=== PATIENT | male | born 1960 | race Caucasian/White ===

== ENCOUNTER 2025-09-30 17:00 | Inpatient (IN) ==
--- NOTE | 2025-09-30 19:50 | DR.EXTPAIN ---
HPI Time seen Time Seen by Provider: 09/30/25 19:37 HPI Comment HPI Comment: According to pt he has hx of umbilical hernia .Over the past 2 days has noticed increased abdominal pain with nausea and vomiting and fever .Pt came to ER for evaluation Complaint/Symptoms Chief Complaint Doctor Comments: abdominal pain and fever Chief Complaint:: Patient states that he has had a hernia near the center of his abdomen for the past 2 years. He states that the past couple of days, he has had severe pain in that area, it is reddened, he has thrown up, and feels like he ran fever last night. COVID-19 Coronavirus risk:travel/contact w/high risk person: No Has patient experienced Coronavirus symptoms: No Coronavirus symptoms experienced: Fever Nurses notes reviewed Nurses Notes Review: Yes Source History Provided: Patient Mode of arrival Mode of Arrival: Ambulatory Timing Onset of Chief Complaint: 09/28/25 Context History of: None Associated signs and symptoms Associated Signs and Symptoms: Pain PMH PMH Past Medical History: Yes Past Medical History: Hypertension and Kidney Stones Past Surgical History: Yes Surgical History: Joint Replacement Past Surgical History Comment: Both knees, right ankle Family History History of Family Medical Conditions: Yes Family Medical History: Cancer, [place], Coronary Artery Disease, Heart Failure and Hypertension Social History Does patient currently use any type of tobacco product: No Have you used tobacco products in the last 12 months: No Type of Tobacco Use: None Does any household member use tobacco: No Alcohol Use: Occasionally Do you use any recreational Drugs:: No Lives With: Family Lives Where: Home Travel Risk Coronavirus risk:travel/contact w/high risk person: No Has patient experienced Coronavirus symptoms: No Infectious screening In the last 2 months have you had wt loss of >10#?: NO Have you had fever, night sweats or hemotysis?: No Have you traveled outside the country in the last 6 months?: No Isolation: Standard ROS Review of Systems Constitutional: Fever and Malaise Eyes: No Symptoms Reported ENTM: No Symptoms Reported Respiratoy: No Symptoms Reported Cardiovascular: No Symptoms Reported Gastrointestinal/Abdominal: Abdominal Pain, Nausea and Vomiting Genitourinary: No Symptoms Reported Neurological: No Symptoms Reported Musculoskeletal: No Symptoms Reported Integumentary: No Symptoms Reported Hematologic/Lymphatic: No Symptoms Reported Endocrine: No Symptoms Reported Psychiatric: No Symptoms Reported PE Vital Signs Vitals: Vital Signs Temperature 98.2 F Pulse Rate 109 Respiratory Rate 18 Respiratory Rate 18 Blood Pressure 123/78 O2 Sat by Pulse Oximetry 96 General Limitations: No Limitations General Appearance: Alert, Anxious and In Distress Head Head Exam: Normal Inspection, Atraumatic and Normocephalic Eyes Eye exam: Normal Appearance, PERRL and EOMI ENT ENT Exam: Mucous Membranes Moist Neck Neck Exam: Normal Inspection Chest Chest Inspection: Normal Inspection and Symmetric Chest Wall Rise Respiratory Respiratory Exam: Normal Lung Sounds Bilat Respiratory Exam: Bilateral: Clear to Auscultation Cardiovascular Cardiovascular Exam: +S1 and +S2 Abdominal Exam Abdominal Exam: Soft, Tenderness and Hypoactive Bowel Sounds Abdominal Tenderness: Diffuse and Other (umbilical hernia ,erythematous and tender) Extremities Extremities Exam: Normal Inspection Neurological Neurological Exam: Alert Skin Skin Exam: Normal Color MDM Differential Diagnosis Differential Diagnosis: Other (umbilical hernia ,abdominal pain ,fever ) COURSE Treatment Treatment: cbc,cmp ,ct abdomen /pelvis with contrast ,IV toradol IV zofran ROR Labs Reviewed Laboratory Results Reviewed?: Yes 09/30/25 19:50 09/30/25 19:50 Laboratory: WBC 12.0 X10^3/uL (3.6-10.0) H 09/30/25 19:50 RBC 5.72 X10^6/uL (4.7-6.0) 09/30/25 19:50 Hgb 17.2 g/dL (13.5-18.0) 09/30/25 19:50 Hct 50.5 % (42.0-54.0) 09/30/25 19:50 MCV 88.4 fL (80.0-100.0) 09/30/25 19:50 MCH 30.0 pg (27.0-34.0) 09/30/25 19:50 MCHC 34.0 g/dL (33.0-35.0) 09/30/25 19:50 RDW 13.3 % (11.6-16.5) 09/30/25 19:50 Plt Count 253 X10^3/uL (150.0-450.0) 09/30/25 19:50 MPV 8.2 fL (7.4-11.0) 09/30/25 19:50 Neut % (Auto) 78.1 % (42.0-75.0) H 09/30/25 19:50 Lymph % (Auto) 12.7 % (21.0-51.0) L 09/30/25 19:50 [place] % (Auto) 8.4 % (0.0-13.0) 09/30/25 19:50 Eos % (Auto) 0.1 % (0.9-2.9) L 09/30/25 19:50 Baso % (Auto) 0.7 % (0.2-1.0) 09/30/25 19:50 Neut # (Auto) 9.4 x10^3/uL (2.2-4.8) H 09/30/25 19:50 Lymph # (Auto) 1.5 X10^3/uL (1.3-2.9) 09/30/25 19:50 [place] # (Auto) 1.0 x10^3/uL (0.3-0.8) H 09/30/25 19:50 Eos # (Auto) 0.0 x10^3/uL (0.0-0.2) 09/30/25 19:50 Baso # (Auto) 0.1 X10^3/uL (0.0-0.1) 09/30/25 19:50 Absolute Nucleated RBC 0.4 /100WBC 09/30/25 19:50 Sodium 139 mmol/L (136-145) 09/30/25 19:50 Corrected Sodium TNP 09/30/25 19:50 Potassium 4.8 mmol/L (3.5-5.1) 09/30/25 19:50 Chloride 100 mmol/L (98-107) 09/30/25 19:50 Carbon Dioxide 28.7 mmol/L (21-32) 09/30/25 19:50 BUN 18 mg/dL (7-18) 09/30/25 19:50 Creatinine 1.27 mg/dL (0.70-1.30) 09/30/25 19:50 Est GFR (MDRD) Af Amer > 60 (>60) 09/30/25 19:50 Est GFR (MDRD) Non-Af > 60 (>60) 09/30/25 19:50 Glucose 97 mg/dL (65-99) 09/30/25 19:50 Calcium 9.5 mg/dL (8.5-10.1) 09/30/25 19:50 Corrected Calcium TNP 09/30/25 19:50 Total Bilirubin 1.40 mg/dL (0.2-1.0) H 09/30/25 19:50 Direct Bilirubin 0.30 mg/dL (0-0.2) H 09/30/25 19:50 AST 30 Units/L (15-37) 09/30/25 19:50 ALT 39 Units/L (12-78) 09/30/25 19:50 Alkaline Phosphatase 95 Units/L (46-116) 09/30/25 19:50 Total Protein 8.2 g/dL (6.4-8.2) 09/30/25 19:50 Albumin 4.0 g/dL (3.4-5.0) 09/30/25 19:50 Globulin 4.2 g/dL (2.5-4.5) 09/30/25 19:50 Albumin/Globulin Ratio 1.0 Ratio (1.1-2.1) L 09/30/25 19:50 Amylase 81 Units/L (25-115) 09/30/25 19:50 Lipase 54 Units/L (16-77) 09/30/25 19:50 CT ABDOMEN /pelvis incarcerated umbilical hernia Opioid Opioid Risk Tool Age (Erasto box if 16-45): No History of Preadolescent Sexual Abuse: No Total: 0 Total Score Risk Category: Low Risk Copyright: Obed SARAVIA predicting aberrant behaviors Discharge Plan Diagnosis Discharge Problem: Incarcerated umbilical hernia Discharge Plan Patient Disposition: ADMITTED INPATIENT Condition: Stable Orders to Discharge Patient Discharge Orders: Transfer (Routine); Ordered 09/30/25 Ordered By: Avery Noe
[2025-09-30] MEDS: TORADOL 15 MG VIAL IVP ONE (19:59)
[2025-09-30] MEDS: ZOFRAN INJ 4 MG VIAL IVP ONE (20:00)
[2025-09-30 20:22] LABS: MEAN PLATELET VOLUME 8.2 fL (7.4-11.0); RED CELL DISTRIBUTION WIDTH 13.3 % (11.6-16.5)
[2025-09-30 20:27] LABS: CREATININE 1.27 mg/dL (0.70-1.30); eGFR NON BLACK RACES > 60 (>60)
[2025-09-30] MEDS: OMNIPAQUE 350 mg/mL 100 mL BTL IVP NR (20:55)
--- NOTE | 2025-09-30 21:58 | CT ---
EXAM: CT ABDOMEN AND PELVIS WITH CONTRAST HISTORY: IV contrast only .abdominal pain,umbilical hernia; COMPARISON: None. TECHNIQUE: Axial CT images were obtained through the abdomen and pelvis after the intravenous administration of contrast. Coronal and sagittal reformatted images were included. All CT scans at this facility use dose modulation, iterative reconstruction, and/or weight based dosing when appropriate to reduce radiation dose to as low as reasonably achievable. FINDINGS: LOWER THORAX: Unremarkable. LIVER: Diffuse fatty infiltration. Liver measures 12.6 cm longitudinal. GALLBLADDER: Unremarkable. SPLEEN: Unremarkable. PANCREAS: Unremarkable. KIDNEYS/URETERS/BLADDER: Bilateral nephrolithiasis. No hydroureteronephrosis. The ureters and urinary bladder unremarkable. ADRENAL GLANDS: Unremarkable. ABDOMINAL AORTA: Abdominal aorta has normal caliber. LYMPH NODES: No evidence of enlarged nodes. GI TRACT: Umbilical hernia contains a short-segment of small bowel with obstruction of the bowel proximal to this hernia and decompression of the small bowel distal to this hernia. The distended small bowel measures up to 3.7 cm in diameter. There is thickening of the ritchie of the herniated segment of bowel indicating inflammation. No evidence for pneumatosis intestinalis. The umbilical hernia defect measures 22 mm transverse and 19 mm SI.Appendix is unremarkable. ASCITES: None. PNEUMOPERITONEUM: None. GENITALS: Prostate is mildly enlarged. ANTERIOR ABDOMINAL WALL: Umbilical hernia as discussed above under "GI tract". INGUINAL HERNIA:None. BONES: Degenerative changes of the spine. IMPRESSION: Small-bowel obstruction secondary to umbilical hernia containing a short-segment of bowel. See above for details. Recommend surgical consultation. Bilateral nephrolithiasis. Fatty infiltration of the liver. THIS IS AN ELECTRONICALLY VERIFIED FINAL REPORT 09/30/2025 9:50 PM - Electronically signed by Ron Glez DO
[2025-09-30] MEDS ORDERED: NS 1,000 ML IV 1,000 ML ONE (22:07)
[2025-09-30] MEDS: NS 1,000 ML IV 1,000 ML IV ONE (22:13)
[2025-09-30] MEDS ORDERED: KETAMINE HCL ONE (22:37)
[2025-09-30] MEDS ORDERED: NEO-SYNEPHRINE INJ ONE (22:37)
[2025-09-30] MEDS ORDERED: ULTANE GAS IN ONE (22:37)
[2025-10-01] MEDS: MORPHINE SULFATE INJ 2 MG INJ IVP PRN (00:37)
[2025-10-01] MEDS: HIBICLENS WASH EXT ONE (00:44)
[2025-10-01 04:01] VITALS: BMI 32.5
[2025-10-01] MEDS: COZAAR PO SCH (09:20)
[2025-10-01] MEDS: COLACE CAP 100 MG PO SCH (09:20)
--- NOTE | 2025-10-01 09:24 | DR.H&P ---
H&P History & Physical for Day of: H&P Date: 10/01/25 Chief Complaint Chief Complaint: Abdominal pain, nausea and vomiting, tenderness at the umbilicus History of Present Illness History of Present Illness: This is a 65-year-old male with history of hypertension, kidney stones and bilateral knee replacements who has had 2-day history of abdominal pain nausea vomiting which is worse for the last several hours as he was driving his truck car to [place]. He works as a truck driver teamster. He was evaluated in the emergency room and had a CT scan showing incarcerated umbilical hernia with bowel obstruction proximal to the obstruction with decompressed bowel distally Past Medical History Past Medical History: COPD, GERD, Hypertension, Hypothyroidism and Kidney Stones Past Surgical History Surgical History: Joint Replacement and Ortho Surgery (Bilateral knee replacements) Family History Family Medical History: Cancer, [place], Coronary Artery Disease and Heart Failure Social History Does patient currently use any type of tobacco product: No Have you used tobacco products in the last 12 months: No Type of Tobacco Use: None Alcohol Use: Occasionally Drug Use: None Medications Home Medications: Home Medications Medication Instructions Recorded Confirmed Type aspirin 81 mg tablet 81 mg PO QDAY 09/30/2509/30 History cetirizine 10 mg tablet 10 mg PO QDAY 09/30/2509/30 History fluticasone fur. 100 mcg-umeclid 1 ea inhalation QDAY 09/30/25 09/30/25 History 62.5 mcg-vilant 25 mcg inhalat.powder (Trelegy Ellipta) fluticasone propionate 50 1 spray intranasal QDAY 07/1709/30/25 History mcg/actuation nasal spray,suspension gemfibrozil 600 mg tablet 600 mg PO BID 09/30/2509/30 History levothyroxine 175 mcg tablet 175 mcg PO QDAY 09/30/25 09/30/25 History losartan 100 mg tablet 100 mg PO QDAY 09/30/2507/17 History montelukast 10 mg tablet 10 mg PO QDAY 09/30/2509/30 History omeprazole 40 mg capsule,delayed 40 mg PO QDAY 5 09/30/25 History release tamsulosin 0.4 mg capsule 0.4 mg PO QPM 09/30/2509/30 History testosterone cypionate 200 mg/mL 100 mg IM QWEEK 09/3009/30/25 History intramuscular oil Allergies Allergies Allergy/AdvReac Type Severity Reaction Status Date / Time No Known Drug Allergies Allergy Verified 12/23/18 13:52 Labs 09/30/25 19:50 09/30/25 19:50 Labs: Laboratory WBC 12.0 X10^3/uL (3.6-10.0) H 09/30/25 19:50 RBC 5.72 X10^6/uL (4.7-6.0) 09/30/25 19:50 Hgb 17.2 g/dL (13.5-18.0) 09/30/25 19:50 Hct 50.5 % (42.0-54.0) 09/30/25 19:50 MCV 88.4 fL (80.0-100.0) 09/30/25 19:50 MCH 30.0 pg (27.0-34.0) 09/30/25 19:50 MCHC 34.0 g/dL (33.0-35.0) 09/30/25 19:50 RDW 13.3 % (11.6-16.5) 09/30/25 19:50 Plt Count 253 X10^3/uL (150.0-450.0) 09/30/25 19:50 MPV 8.2 fL (7.4-11.0) 09/30/25 19:50 Neut % (Auto) 78.1 % (42.0-75.0) H 09/30/25 19:50 Lymph % (Auto) 12.7 % (21.0-51.0) L 09/30/25 19:50 [place] % (Auto) 8.4 % (0.0-13.0) 09/30/25 19:50 Eos % (Auto) 0.1 % (0.9-2.9) L 09/30/25 19:50 Baso % (Auto) 0.7 % (0.2-1.0) 09/30/25 19:50 Neut # (Auto) 9.4 x10^3/uL (2.2-4.8) H 09/30/25 19:50 Lymph # (Auto) 1.5 X10^3/uL (1.3-2.9) 09/30/25 19:50 [place] # (Auto) 1.0 x10^3/uL (0.3-0.8) H 09/30/25 19:50 Eos # (Auto) 0.0 x10^3/uL (0.0-0.2) 09/30/25 19:50 Baso # (Auto) 0.1 X10^3/uL (0.0-0.1) 09/30/25 19:50 Absolute Nucleated RBC 0.4 /100WBC 09/30/25 19:50 Sodium 139 mmol/L (136-145) 09/30/25 19:50 Corrected Sodium TNP 09/30/25 19:50 Potassium 4.8 mmol/L (3.5-5.1) 09/30/25 19:50 Chloride 100 mmol/L (98-107) 09/30/25 19:50 Carbon Dioxide 28.7 mmol/L (21-32) 09/30/25 19:50 BUN 18 mg/dL (7-18) 09/30/25 19:50 Creatinine 1.27 mg/dL (0.70-1.30) 09/30/25 19:50 Est GFR (MDRD) Af Amer > 60 (>60) 09/30/25 19:50 Est GFR (MDRD) Non-Af > 60 (>60) 09/30/25 19:50 Glucose 97 mg/dL (65-99) 09/30/25 19:50 Calcium 9.5 mg/dL (8.5-10.1) 09/30/25 19:50 Corrected Calcium TNP 09/30/25 19:50 Total Bilirubin 1.40 mg/dL (0.2-1.0) H 09/30/25 19:50 Direct Bilirubin 0.30 mg/dL (0-0.2) H 09/30/25 19:50 AST 30 Units/L (15-37) 09/30/25 19:50 ALT 39 Units/L (12-78) 09/30/25 19:50 Alkaline Phosphatase 95 Units/L (46-116) 09/30/25 19:50 Total Protein 8.2 g/dL (6.4-8.2) 09/30/25 19:50 Albumin 4.0 g/dL (3.4-5.0) 09/30/25 19:50 Globulin 4.2 g/dL (2.5-4.5) 09/30/25 19:50 Albumin/Globulin Ratio 1.0 Ratio (1.1-2.1) L 09/30/25 19:50 Amylase 81 Units/L (25-115) 09/30/25 19:50 Lipase 54 Units/L (16-77) 09/30/25 19:50 Review of Systems Constitutional: See HPI Eyes: No Symptoms Reported ENT: No Symptoms Reported Respiratory: No Symptoms Reported Cardiovascular: No Symptoms Reported Gastrointestinal: See HPI Genitourinary: No Symptoms Reported Musculoskeletal: See HPI Skin: No Symptoms Reported Neurological: No Symptoms Reported Physical Exam Vital Signs: Vital Signs Temperature 97.8 F Temperature 97.5 F Pulse Rate [Brachial] 76 Pulse Rate [Brachial] 91 Respiratory Rate 19 Respiratory Rate 18 Respiratory Rate 24 Respiratory Rate 20 Blood Pressure [Left Arm] 106/61 Blood Pressure [Left Arm] 110/69 O2 Sat by Pulse Oximetry 95 O2 Sat by Pulse Oximetry 93 Oriented: Normal, Time, Person and Place Eyes: Normal Ear: Normal Nose: Normal Throat: Normal Respiratory: Clear Throughout Cardiovascular: Normal : Normal and Other (History of kidney stones, on Flomax) Auscultation: Bowel Sounds: Normal Palpation: Other (Incarcerated umbilical hernia with mild redness at this area) Tenderness: Periumbilical (Mild periumbilical tenderness. No peritoneal signs) Skin: Other (Mild redness at the umbilical site.) Musculoskeletal: Normal (Healed bilateral knee replacement incisions) Psychiatric: Normal Mood Description: Calm Affect: Normal Speech Pattern: Clear and Appropriate Assessment/Plan (1) Incarcerated umbilical hernia: Status: Acute Plan: Patient will be taken to the operating suite for laparoscopic exploration and repair umbilical hernia and this should relieve the bowel obstruction. Risk and benefits discussed with the patient and his . They understand the risk of bleeding infection perforation and leak of the bowel contents. They understand and agree to proceed. (2) Essential (primary) hypertension: Status: Acute Plan: Home medications (3) Acid reflux: Status: Acute Plan: Home medications (4) COPD (chronic obstructive pulmonary disease): Status: Acute Plan: Home medications (5) Personal history of kidney stones: Status: Acute Plan: Home medications (6) Hypothyroid: Status: Acute Plan: Home medications Review H&P Reviewed: Yes
[2025-10-01] MEDS: PEPCID 20 MG VIAL ONE (09:29)
[2025-10-01] MEDS: TORADOL 30 MG VIAL ONE (09:38)
[2025-10-01] MEDS: ZOFRAN INJ 4 MG VIAL ONE (09:38)
[2025-10-01] MEDS: ZEMURON 100 MG VIAL ONE (09:38)
[2025-10-01] MEDS: BRIDION ONE (09:39)
[2025-10-01] MEDS: DILAUDID INJ ONE (09:39)
[2025-10-01] MEDS: VERSED ONE (09:39)
[2025-10-01] MEDS: OFIRMEV IV 1000 MG VIAL 1,000 MG/100 ML VIAL IV ONE (09:39)
[2025-10-01] MEDS: XYLOCAINE 2 % (PLAIN) ONE (09:39)
[2025-10-01] MEDS: DIPRIVAN VIAL 20 ML ONE (09:39)
[2025-10-01] MEDS: FENTANYL VIAL INJ 100 mcg ONE (09:39)
[2025-10-01] MEDS: LR 1,000 ML IV 1,000 ML IV ONE (09:41)
[2025-10-01] MEDS: LR 1,000 ML IV 600 ML IV PRN (09:50)
[2025-10-01] MEDS: PEPCID 20 MG VIAL IVP PRN (09:50)
[2025-10-01] MEDS: ZOFRAN INJ 4 MG VIAL IVP PRN (09:50)
[2025-10-01] MEDS: NS 100 ML IV 100 ML ONE (09:54)
[2025-10-01] MEDS: ANCEF VIAL 1 GRAM ONE (09:54)
[2025-10-01] MEDS: ANCEF VIAL 1 GRAM IV PRN (10:00)
[2025-10-01] MEDS: VERSED IVP PRN (10:01)
--- NOTE | 2025-10-01 10:06 | EKG ---
Test Reason : pt in PACU Blood Pressure : */* mmHG Vent. Rate : 76 BPM Atrial Rate : 76 BPM P-R Int : 152 ms QRS Dur : 100 ms QT Int : 364 ms P-R-T Axes : 39 49 33 degrees QTc Int : 409 ms Sinus rhythm with premature atrial complexes Otherwise normal ECG No previous ECGs available Confirmed by Jah Spain MD ([id number]) on 10/02/2025 7:21:30 AM Referred By: Confirmed By: Jah Spain MD
[2025-10-01] MEDS: FENTANYL VIAL INJ 100 mcg IVP PRN (10:11)
[2025-10-01] MEDS: DIPRIVAN VIAL 180 ML IVP PRN (10:12)
[2025-10-01] MEDS: XYLOCAINE 2 % (PLAIN) IVP PRN (10:12)
[2025-10-01] MEDS: ZEMURON 100 MG VIAL IVP PRN (10:13)
[2025-10-01] MEDS: KETAMINE HCL IV PRN (10:15)
[2025-10-01] MEDS: NS 1,000 ML IV 1,000 ML ONE ×2 (10:24→20:06)
[2025-10-01] MEDS ORDERED: BENADRYL INJ 50 MG VIAL IVP PRN (10:38)
[2025-10-01] MEDS ORDERED: DILAUDID INJ IVP PRN (10:38)
[2025-10-01] MEDS ORDERED: BARHEMSYS INJ IVP PRN (10:38)
[2025-10-01] MEDS ORDERED: ZOFRAN INJ 4 MG VIAL IVP PRN (10:38)
[2025-10-01] MEDS: TORADOL 30 MG VIAL IVP PRN (10:44)
[2025-10-01] MEDS: OFIRMEV IV 1000 MG VIAL 1,000 MG/100 ML VIAL IV PRN (10:49)
[2025-10-01] MEDS: NEO-SYNEPHRINE INJ IVP PRN (10:59)
[2025-10-01] MEDS: BRIDION IVP PRN (11:04)
--- NOTE | 2025-10-01 11:14 | OR.IMMED ---
IMMEDIATE POST-OP NOTE Immediate Post-Op Note Date of surgery/procedure: 10/01/25 Pre-Op Diagnosis: Incarcerated umbilical hernia with small bowel Post-Op Diagnosis: Pain, resolved Procedure: Resolution of incarcerated hernia and small bowel obstruction with laparoscopic umbilical hernia repair, see findings below Description of Procedure: dictated Surgeon/Supervisor Air Conditioning Installer: Coby Findings: Small bowel incarcerated umbilical hernia. Relieved with sharp dissection. No ischemia of the bowel. Had laparoscopic repair of umbilical hernia Estimated Blood Loss: < 50 cc Complications: none Progress Notes: To PACU then to floor. Will advance diet. Pain control
[2025-10-01] MEDS: NS 1,000 ML IV 1,000 ML IV ONE ×2 (12:12→13:10)
--- NOTE | 2025-10-01 12:23 | DR.OPNOTE ---
OP NOTE Pre-Op Diagnosis: Incarcerated umbilical hernia with small bowel obstruction Post-Op Diagnosis: same Procedure Date Date Of Procedure: 10/01/25 Procedure: PROCEDURE: Laparoscopic repair of incarcerated umbilical hernia causing small bowel obstruction NARRATIVE: The patient was taken the operating suite and placed in the supine position. General endotracheal anesthesia induced. The entire abdomen prepped and draped sterile in fashion. Timeout for the procedure obtained. 5 mm incision was made to the left side of the abdomen lateral to the left rectus sheath in line with the umbilicus and a 5 mm trocar used to enter the abdominal cavity. Abdomen insufflated to 15 mL of mercury with carbon dioxide. Patient had obvious incarcerated small bowel in an umbilical hernia. 5mm trocars were placed cephalad and caudad to the original trocar on the left side of the abdomen, With pressure over the umbilicus and a bowel grasper we able to remove the bowel from the hernia. There was no ischemia of the bowel wall. Good peristalsis. Obstruction relieved. No other abnormalities were noted. At this point a 4.5 inch round Ventralex mesh was selected and holding sutures of 2-0 Gortex placed in 4 quadrants around the outside of the mesh . The mesh was moistened and then rolled up and placed in the abdominal cavity and . The sutures were brought out equidistant around the hernia defect through punture incisions with a needle grasper and then tied into position. The mesh secured to the abdominal wall with absorbable tacks. The superior trocar to the left abdomen had been change from a 5 mm to a 12 mm trocar to help with placing the mesh in the abdominal cavity. Once this was done all trocars removed. All incisions irrigated with saline and hemostasis obtained with electrocautery. All trocar site incisions closed with subcutaneous 3-0 Vicryl sutures. All incision the closed with Steri-Strips after injecting lidocaine into each incision wound. Patient extubated and taken to PACU in good condition. Type of Anesthesia: General Anesthetic w/ETT Findings: Incarcerated umbilical hernia with small bowel. Once bowel was freed up there was no evidence of ischemia. This released small bowel obstruction no other abnormality of the abdomen noted. After relieving the small bowel course ration the hernia was repaired using Prolene mesh and laparoscopic procedure Type of Fluids Used:: Lactated Ringers EBL: < 50 cc Complications:: none Needle/Sponge Count:: correct Disposition/Condition: Pt. tolerated procedure without difficulty. Extubated in the OR and taken to PACU in stable condition.
[2025-10-01] MEDS ORDERED: NS 1,000 ML IV 1,000 ML ONE (12:59)
[2025-10-01] MEDS: LR 1,000 ML IV 1,000 ML IV SCH (13:20)
[2025-10-01] MEDS: PERCOCET TAB 5/325 MG PO PRN (18:20)
--- NOTE | 2025-10-01 18:20 | NOTE.SOAP ---
Soap Note Note for Day of Date of Exam: 10/01/25 Subjective Data Subjective Data: Patient post procedure repair of incarcerated umbilical hernia with small bowel obstruction. Patient had some hypotension postprocedure which responded to IV fluids and fluid boluses. Patient hungry and tolerating a regular diet. Abdomen soft and benign. Objective Data Temperature: 98.3 F Pulse Rate: 96 Respiratory Rate: 18 Blood Pressure: 105/65 Objective Data: As above. Incisions clean and dry. Abdomen benign Assessment Assessment: Incarcerated umbilical hernia status postrepair. Plan Plan: Continue IV fluids and diet. May be able to discharge home in the a.m.
[2025-10-01] MEDS: OMNIPAQUE 350 mg/mL 100 mL BTL 100 ML ONE (20:04)
[2025-10-01] MEDS: FLOMAX PO SCH (20:36)
[2025-10-02 06:07] LABS: MEAN PLATELET VOLUME 7.8 fL (7.4-11.0); RED CELL DISTRIBUTION WIDTH 13.6 % (11.6-16.5)
[2025-10-02 06:21] LABS: COR CA(FOR HYPOALB) 8.3 mg/dL (8.5-10.1); CREATININE 1.36 mg/dL (0.70-1.30); eGFR NON BLACK RACES 56 (>60)
[2025-10-02] MEDS ORDERED: CONSULT PHARMACY - POTASSIUM & MAGNESIUM XX SCH (07:00)
[2025-10-02] MEDS: K-DUR TAB 20 MEQ PO SCH (08:43)
[2025-10-02 15:52] VITALS: BP 98/54; PULSE 74; TEMP 98.7; O2SAT 93
[2025-10-02 17:00] VITALS: RESP 18
--- NOTE | 2025-10-02 17:58 | W.DIS.FURT ---
Summary of Discharge Discharge Summary of Date Date of Exam: 10/02/25 Admission Date Date of Admission: 10/01/25 Admission Diagnosis Patient Problems (Updated 10/01/25 @ 09:22 by Wilder Tenorio) Incarcerated umbilical hernia (Acute) K42.0 Hospital Course: This is a 65-year-old male who presented with abdominal pain and nausea. Evaluated in the emergency room and CT scan consistent with incarcerated umbilical hernia with bowel obstruction. The morning of admission he was taken to the operating suite where he underwent laparoscopic reduction of the hernia and repair. The bowel looked good. This morning he had some mild incisional tenderness but that has been getting better. He is tolerating a regular diet and passing flatus but no bowel movement yet. He be discharged at this time with his usual medications plus Percocet, 5 mg tablets 1 over 6 hours. Pain. He will follow-up with me in 1 week. Vital Signs: Vital Signs (72 hours) 09/30/25 17:16 09/30/25 19:59 09/30/25 20:29 Temperature 98.2 F Pulse Rate 109 H Pulse Rate [Brachial] Respiratory Rate 18 18 20 Blood Pressure 123/78 Blood Pressure [Left Arm] O2 Sat by Pulse Oximetry 96 Oxygen Delivery Method Room Air Oxygen Flow Rate FIO2% 09/30/25 23:30 09/30/25 23:30 10/01/25 00:00 Temperature 97.6 F 97.6 F Pulse Rate Pulse Rate [Brachial] 79 79 Respiratory Rate 20 20 Blood Pressure Blood Pressure [Left Arm] 126/74 126/74 O2 Sat by Pulse Oximetry 95 95 Oxygen Delivery Method Room Air Room Air Room Air Oxygen Flow Rate FIO2% 10/01/25 00:37 10/01/25 01:07 10/01/25 04:00 Temperature 97.5 F L Pulse Rate Pulse Rate [Brachial] 91 H Respiratory Rate 22 18 20 Blood Pressure Blood Pressure [Left Arm] 110/69 O2 Sat by Pulse Oximetry 93 L Oxygen Delivery Method Room Air Oxygen Flow Rate FIO2% 10/01/25 06:19 10/01/25 06:49 10/01/25 08:35 Temperature 97.8 F Pulse Rate Pulse Rate [Brachial] 76 Respiratory Rate 24 18 19 Blood Pressure Blood Pressure [Left Arm] 106/61 O2 Sat by Pulse Oximetry 95 Oxygen Delivery Method Room Air Oxygen Flow Rate FIO2% 10/01/25 09:08 10/01/25 09:38 10/01/25 11:19 Temperature 98.0 F Pulse Rate 76 94 H Pulse Rate [Brachial] Respiratory Rate 14 14 Blood Pressure 118/74 102/59 Blood Pressure [Left Arm] O2 Sat by Pulse Oximetry 95 94 L Oxygen Delivery Method Room Air Nasal Cannula Aerosol Face Tent Oxygen Flow Rate FIO2% 10/01/25 11:24 10/01/25 11:29 10/01/25 11:34 Temperature Pulse Rate 94 H 91 H 89 Pulse Rate [Brachial] Respiratory Rate 14 14 14 Blood Pressure 98/59 90/56 92/60 Blood Pressure [Left Arm] O2 Sat by Pulse Oximetry 94 L 96 96 Oxygen Delivery Method Aerosol Face Tent Aerosol Face Tent Nasal Cannula Oxygen Flow Rate FIO2% 10/01/25 11:39 10/01/25 11:44 10/01/25 11:49 Temperature 98.0 F Pulse Rate 89 90 89 Pulse Rate [Brachial] Respiratory Rate 14 14 14 Blood Pressure 92/60 86/56 94/55 Blood Pressure [Left Arm] O2 Sat by Pulse Oximetry 94 L 94 L 94 L Oxygen Delivery Method Nasal Cannula Nasal Cannula Nasal Cannula Oxygen Flow Rate FIO2% 10/01/25 12:00 10/01/25 12:15 10/01/25 12:30 Temperature 98.5 F 98.5 F 98.5 F Pulse Rate Pulse Rate [Brachial] 85 81 74 Respiratory Rate 21 20 20 Blood Pressure Blood Pressure [Left Arm] 95/54 93/57 97/54 O2 Sat by Pulse Oximetry 94 L 96 96 Oxygen Delivery Method Nasal Cannula Nasal Cannula Nasal Cannula Oxygen Flow Rate 2 2 2 FIO2% 10/01/25 12:45 10/01/25 13:00 10/01/25 14:00 Temperature 98.5 F 98.5 F 98.1 F Pulse Rate Pulse Rate [Brachial] 78 80 98 H Respiratory Rate 20 20 20 Blood Pressure Blood Pressure [Left Arm] 89/57 95/60 102/63 O2 Sat by Pulse Oximetry 96 95 95 Oxygen Delivery Method Nasal Cannula Nasal Cannula Nasal Cannula Oxygen Flow Rate 2 2 2 FIO2% 10/01/25 14:12 10/01/25 14:42 10/01/25 15:00 Temperature 98.9 F Pulse Rate Pulse Rate [Brachial] 94 H Respiratory Rate 19 19 18 Blood Pressure Blood Pressure [Left Arm] 106/65 O2 Sat by Pulse Oximetry 95 Oxygen Delivery Method Nasal Cannula Oxygen Flow Rate 2 FIO2% 10/01/25 16:00 10/01/25 17:00 10/01/25 18:20 Temperature 98.3 F 97.9 F Pulse Rate Pulse Rate [Brachial] 96 H 92 H Respiratory Rate 18 19 19 Blood Pressure Blood Pressure [Left Arm] 105/65 101/60 O2 Sat by Pulse Oximetry 94 L 93 L Oxygen Delivery Method Nasal Cannula Room Air Oxygen Flow Rate 2 2 FIO2% 10/01/25 18:20 10/01/25 19:00 10/01/25 19:20 Temperature 98.3 F Pulse Rate 96 H Pulse Rate [Brachial] Respiratory Rate 18 19 Blood Pressure 105/65 Blood Pressure [Left Arm] O2 Sat by Pulse Oximetry Oxygen Delivery Method Room Air Oxygen Flow Rate FIO2% 10/01/25 20:00 10/01/25 22:00 10/01/25 22:30 Temperature 98.6 F Pulse Rate Pulse Rate [Brachial] 85 Respiratory Rate 18 18 18 Blood Pressure Blood Pressure [Left Arm] 112/62 O2 Sat by Pulse Oximetry 95 Oxygen Delivery Method Room Air Oxygen Flow Rate 2 FIO2% 10/01/25 23:40 10/02/25 00:00 10/02/25 00:37 Temperature 98.9 F Pulse Rate Pulse Rate [Brachial] 86 Respiratory Rate 18 18 18 Blood Pressure Blood Pressure [Left Arm] 103/58 O2 Sat by Pulse Oximetry 93 L Oxygen Delivery Method Room Air Oxygen Flow Rate 2 FIO2% 10/02/25 03:21 10/02/25 03:47 10/02/25 04:21 Temperature 97.7 F Pulse Rate Pulse Rate [Brachial] 71 Respiratory Rate 18 18 18 Blood Pressure Blood Pressure [Left Arm] 97/54 O2 Sat by Pulse Oximetry 92 L Oxygen Delivery Method Room Air Oxygen Flow Rate 2 FIO2% 10/02/25 07:00 10/02/25 07:29 10/02/25 07:48 Temperature 98.1 F Pulse Rate Pulse Rate [Brachial] 82 Respiratory Rate 16 Blood Pressure Blood Pressure [Left Arm] 114/61 O2 Sat by Pulse Oximetry 92 L Oxygen Delivery Method Nasal Cannula Room Air Room Air Oxygen Flow Rate 2 2 FIO2% 28 10/02/25 08:44 10/02/25 09:14 10/02/25 12:00 Temperature 98.2 F Pulse Rate Pulse Rate [Brachial] 78 Respiratory Rate 17 17 18 Blood Pressure Blood Pressure [Left Arm] 117/64 O2 Sat by Pulse Oximetry 97 Oxygen Delivery Method Room Air Oxygen Flow Rate FIO2% 10/02/25 15:51 10/02/25 16:59 Temperature 98.7 F Pulse Rate Pulse Rate [Brachial] 74 Respiratory Rate 20 18 Blood Pressure Blood Pressure [Left Arm] 98/54 O2 Sat by Pulse Oximetry 93 L Oxygen Delivery Method Room Air Oxygen Flow Rate FIO2% Labs: Laboratory Last Values WBC 8.1 X10^3/uL (3.6-10.0) 10/02/25 05:36 RBC 4.37 X10^6/uL (4.7-6.0) L 10/02/25 05:36 Hgb 13.1 g/dL (13.5-18.0) L 10/02/25 05:36 Hct 38.5 % (42.0-54.0) L 10/02/25 05:36 MCV 88.1 fL (80.0-100.0) 10/02/25 05:36 MCH 30.0 pg (27.0-34.0) 10/02/25 05:36 MCHC 34.0 g/dL (33.0-35.0) 10/02/25 05:36 RDW 13.6 % (11.6-16.5) 10/02/25 05:36 Plt Count 162 X10^3/uL (150.0-450.0) 10/02/25 05:36 MPV 7.8 fL (7.4-11.0) 10/02/25 05:36 Neut % (Auto) 61.8 % (42.0-75.0) 10/02/25 05:36 Lymph % (Auto) 24.5 % (21.0-51.0) 10/02/25 05:36 [place] % (Auto) 10.8 % (0.0-13.0) 10/02/25 05:36 Eos % (Auto) 2.7 % (0.9-2.9) 10/02/25 05:36 Baso % (Auto) 0.2 % (0.2-1.0) 10/02/25 05:36 Neut # (Auto) 5.0 x10^3/uL (2.2-4.8) H 10/02/25 05:36 Lymph # (Auto) 2.0 X10^3/uL (1.3-2.9) 10/02/25 05:36 [place] # (Auto) 0.9 x10^3/uL (0.3-0.8) H 10/02/25 05:36 Eos # (Auto) 0.2 x10^3/uL (0.0-0.2) 10/02/25 05:36 Baso # (Auto) 0.0 X10^3/uL (0.0-0.1) 10/02/25 05:36 Absolute Nucleated RBC 0.1 /100WBC 10/02/25 05:36 Sodium 141 mmol/L (136-145) 10/02/25 05:36 Corrected Sodium TNP 10/02/25 05:36 Potassium 3.7 mmol/L (3.5-5.1) 10/02/25 05:36 Chloride 108 mmol/L (98-107) H 10/02/25 05:36 Carbon Dioxide 25.4 mmol/L (21-32) 10/02/25 05:36 BUN 22 mg/dL (7-18) H 10/02/25 05:36 Creatinine 1.36 mg/dL (0.70-1.30) H 10/02/25 05:36 Est GFR (MDRD) Af Amer > 60 (>60) 10/02/25 05:36 Est GFR (MDRD) Non-Af 56 (>60) L 10/02/25 05:36 Glucose 106 mg/dL (65-99) H 10/02/25 05:36 Calcium 7.3 mg/dL (8.5-10.1) L 10/02/25 05:36 Corrected Calcium 8.3 mg/dL (8.5-10.1) L 10/02/25 05:36 Magnesium 2.0 mg/dL (2.0-2.9) 10/02/25 05:36 Total Bilirubin 0.60 mg/dL (0.2-1.0) 10/02/25 05:36 Direct Bilirubin 0.30 mg/dL (0-0.2) H 09/30/25 19:50 AST 15 Units/L (15-37) 10/02/25 05:36 ALT 24 Units/L (12-78) 10/02/25 05:36 Alkaline Phosphatase 70 Units/L (46-116) 10/02/25 05:36 Total Protein 5.9 g/dL (6.4-8.2) L 10/02/25 05:36 Albumin 2.8 g/dL (3.4-5.0) L 10/02/25 05:36 Globulin 3.1 g/dL (2.5-4.5) 10/02/25 05:36 Albumin/Globulin Ratio 0.9 Ratio (1.1-2.1) L 10/02/25 05:36 Amylase 81 Units/L (25-115) 09/30/25 19:50 Lipase 54 Units/L (16-77) 09/30/25 19:50 Reason For Visit: INCARCERATED UMBILICAL HERNIA Discharge Diagnosis All Active Problems (Updated 10/01/25 @ 09:22 by Wilder Tenorio) Hypothyroid (Acute) Personal history of kidney stones (Acute) COPD (chronic obstructive pulmonary disease) (Acute) Acid reflux (Acute) Essential (primary) hypertension (Acute) Incarcerated umbilical hernia (Acute) Fatigue (Acute) Rhinosinusitis (Acute) Hydronephrosis with obstructing calculus (Acute) Accidental fall (Acute) Contusion of face (Acute) Degenerative joint disease of cervical spine (Acute) Pneumonia due to 2019-nCoV (Acute) Nausea & vomiting (Acute) Plan of Treatment: Continue with present treatment and follow up plan. Pt is to keep follow up appointment as instructed and take medications as ordered. Discharge Medications Discharge Medications: No Known Drug Allergies Allergy (Verified 12/23/18 13:52) CONTINUE taking the following medications aspirin 81 mg tablet 81 mg PO QDAY 09/30/25 [History] cetirizine 10 mg tablet 10 mg PO QDAY 09/30/25 [History] fluticasone fur. 100 mcg-umeclid 62.5 mcg-vilant 25 mcg inhalat.powder (Trelegy Ellipta) 1 ea inhalation QDAY 09/30/25 [History] fluticasone propionate 50 mcg/actuation nasal spray,suspension 1 spray intranasal QDAY 09/30/25 [History] gemfibrozil 600 mg tablet 600 mg PO BID 09/30/25 [History] levothyroxine 175 mcg tablet 175 mcg PO QDAY 09/30/25 [History] losartan 100 mg tablet 100 mg PO QDAY 09/30/25 [History] montelukast 10 mg tablet 10 mg PO QDAY 09/30/25 [History] omeprazole 40 mg capsule,delayed release 40 mg PO QDAY 09/30/25 [History] tamsulosin 0.4 mg capsule 0.4 mg PO QPM 09/30/25 [History] testosterone cypionate 200 mg/mL intramuscular oil 100 mg IM QWEEK 09/30/25 [History] Percocet, 5 mg tablets, 1 every 6 hours as needed for pain #20 Discharge Disposition Assessment: see hospital course Discharge Plan Discharge Plan Hospital Course: This is a 65-year-old male who presented with abdominal pain and nausea. Evaluated in the emergency room and CT scan consistent with incarcerated umbilical hernia with bowel obstruction. The morning of admission he was taken to the operating suite where he underwent laparoscopic reduction of the hernia and repair. The bowel looked good. This morning he had some mild incisional tenderness but that has been getting better. He is tolerating a regular diet and passing flatus but no bowel movement yet. He be discharged at this time with his usual medications plus Percocet, 5 mg tablets 1 over 6 hours. Pain. He will follow-up with me in 1 week. Patient Disposition: 01 HOME, SELF-CARE Condition: Stable Health Concerns: Post Hospitalization: new medications and changes needed to prevent readmission or further decline. Pt educated and given instructions on all concerns. Plan of Treatment: Continue with present treatment and follow up plan. Pt is to keep follow up appointment as instructed and take medications as ordered. Assessment: see hospital course Prescription drug monitoring program results: PDMP was not reviewed Prescriptions: No Action levothyroxine 175 mcg tablet 175 mcg PO QDAY gemfibrozil 600 mg tablet 600 mg PO BID testosterone cypionate 200 mg/mL oil 100 mg IM QWEEK Patient Comments: Administered on 09/28/2025 losartan 100 mg tablet 100 mg PO QDAY Trelegy Ellipta 100-62.5-25 mcg blister with device 1 ea INHALATION QDAY cetirizine 10 mg tablet 10 mg PO QDAY omeprazole 40 mg capsule,delayed release(DR/EC) 40 mg PO QDAY tamsulosin 0.4 mg capsule 0.4 mg PO QPM montelukast 10 mg tablet 10 mg PO QDAY aspirin 81 mg Tablet 81 mg PO QDAY fluticasone propionate [Flonase] 50 mcg/actuation [place],Suspension 1 spray INTRANASAL QDAY Rx Instructions: administer into each nostril Follow ups/Referrals Follow ups/Referrals: Sim Gil [Primary Care Provider, MEDICAL] - 3 days Wilder Tenorio [STAFF PHYSICIAN, Unknown] - 10/18/25 11:00 am Instructions Instructions: Umbilical Hernia, Adult, Laparoscopic Surgery for Belly Hernias: What to Know After Stand Alone Forms: Excuse From Work or School, Find Help Web Site, Post Hospital Follow Up Care Print Language: ALGERIAN
== END 2025-10-02 18:05 | disposition home or self-care (01) | DRG 354 ==
LOC: MED/SURG 17:00 → ER 17:00 → OBSVTOIN 22:37 → MED/SURG 23:30
PROVIDERS: ADMIT Surgery; ATTEND Surgery
DX: D72.828 Other elevated white blood cell count; I10 Essential (primary) hypertension; K42.0 Umbilical hernia with obstruction, without gangrene; R79.89 Other specified abnormal findings of blood chemistry; Z01.810 Encounter for preprocedural cardiovascular examination; I95.89 Other hypotension; K56.690 Other partial intestinal obstruction; J44.9 Chronic obstructive pulmonary disease, unspecified; Z87.442 Personal history of urinary calculi; E03.8 Other specified hypothyroidism; R11.2 Nausea with vomiting, unspecified; Z79.899 Other long term (current) drug therapy; E80.6 Other disorders of bilirubin metabolism; R10.84 Generalized abdominal pain; K21.9 Gastro-esophageal reflux disease without esophagitis